=== PATIENT | male | born 1980 | race Caucasian/White ===

== ENCOUNTER 2016-06-15 12:30 | Emergency (ER) | payer OTHER ==
[2016-06-15 12:40] VITALS: TEMP 98.1
[2016-06-15 13:09] VITALS: BP 153/91; PULSE 68; RESP 16
--- NOTE | 2016-06-15 13:22 | ED ---
General Adult HPI - General Chief complaint: ENT Stated complaint: Throat Pain Time Seen by Provider: 06/15/16 12:44 Source: patient Mode of arrival: ambulatory Limitations: no limitations - Related Data Home Medications Medication Instructions Recorded Confirmed Hydrocodone/Acetaminophen [[place] 1 tab PO Q6HR PRN 12/19/15 12/24/15 5-325] Previous Rx's Medication Instructions Recorded Diazepam [Valium] 2 mg PO DIRECTED #6 tab 12/24/15 cefTRIAXone [Rocephin] 2,000 mg IVPB DAILY #7 vial 12/26/15 Allergies Allergy/AdvReac Type Severity Reaction Status Date / Time NSAIDS (Non-Steroidal Allergy Anaphylaxis Verified 06/15/16 12:40 Anti-Inflamma Review of Systems ROS Statement: Those systems with pertinent positive or pertinent negative responses have been documented in the HPI. ROS Other: All systems not noted in ROS Statement are negative. Past Medical History Past Medical History: No Reported History Additional Past Medical History / Comment(s): Pt admitted 12/19/15 with L foot abscess from infected hematoma/L foot cellulitis. He had a recent L foot injury (trailer dropped on foot). History of Any Multi-Drug Resistant Organisms: MRSA Date of last positivie culture/infection: 2013 MDRO Source:: Lip, R. Leg Past Surgical History: No Surgical Hx Reported Additional Past Surgical History / Comment(s): 12/21/15 I & D L foot. Past Anesthesia/Blood Transfusion Reactions: No Reported Reaction Past Psychological History: Anxiety Additional Psychological History / Comment(s): It appears that he is and does have a child. He however lives independently and appears to have a roommate. He does drink alcohol daily-last drank 12/17/15. He does smoke marijuana frequently-last smoked 12/24/15. Works in construction, heavy labor. No experience. No international travel. No animal exposures Smoking Status: Former smoker Past Alcohol Use History: Daily Additional Past Alcohol Use History / Comment(s): Pt states he used to drink 12 beers a day up until 12/17/15. Past Drug Use History: Marijuana Additional Drug Use History / Comment(s): Pt states he has a medical marijuana card. He states he smokes 1 joint a day and last smoked after discharge yesterday from hospital. - Past Family History Father Family Medical History: No Reported History Mother Family Medical History: No Reported History General Exam Limitations: no limitations Course Vital Signs 06/15/16 06/15/16 12:38 13:08 Temperature 98.1 F Pulse Rate 79 68 Respiratory 18 16 Rate Blood Pressure 176/107 153/91 O2 Sat by Pulse 98 100 Oximetry Medical Decision Making - Medical Decision Making Strep test negative here the emergency room. Results were discussed with the patient. He does admit that his had similar symptoms off and on over the last 3 years. Was discussed about following up with ENT specialist. Patient will be given information for follow-up. Advised return for any other concerns. States understanding and is in agreement with this plan. - Lab Data Lab Results 06/15/16 Range/Units 12:51 Group A Strep Rapid Negative (Negative) Disposition Clinical Impression: Pharyngitis Disposition: HOME SELF-CARE Condition: Good Instructions: Pharyngitis (ED) Additional Instructions: Please follow-up with ENT specialist as discussed. Return to emergency room if any symptoms increase or worsen or for any other concerns. Referrals: Galen Brenner MD [Primary Care Provider] - 1-2 days Nic Box DO [Doctor of Osteopathic Medicine] - 1-2 days Time of Disposition: 13:32
== END 2016-06-15 13:42 | disposition home or self-care (01) ==
LOC: EC 12:30
DX: J02.9 Acute pharyngitis, unspecified (principal); Z87.891 Personal history of nicotine dependence; Z88.6 Allergy status to analgesic agent
CPT/HCPCS: 87081; 87430; 99283

== ENCOUNTER 2016-10-04 15:20 | Emergency (ER) | payer OTHER ==
--- NOTE | 2016-10-04 15:48 | ED ---
General Adult HPI - General Chief complaint: Upper Respiratory Infection Stated complaint: Chest congestion Time Seen by Provider: 10/04/16 15:33 Source: patient Mode of arrival: ambulatory Limitations: no limitations - History of Present Illness Initial comments: Is a 35-year-old male who presents emergency department for a cough and blood- tinged sputum. He states that he's been having upper respiratory symptoms including runny nose and sore throat for the last week. He states over the last 24 hours he developed a cough and his girlfriend stated that he was wheezing overnight and he denies any fevers or chills at home. He states that she's been using [id number] medications and remedies. He seems a is still worsening. He was concerned that he may be developing pneumonia so decided come emergency department. The patient does smoke medical marijuana however not tobacco. Denies any other complaints currently. - Related Data Previous Rx's Medication Instructions Recorded Amoxicillin/Potassium Clav 1 tab PO Q12HR #14 tab 10/04/16 [Augmentin 875-125 Tablet] Allergies Allergy/AdvReac Type Severity Reaction Status Date / Time NSAIDS (Non-Steroidal Allergy Anaphylaxis Verified 10/04/16 15:30 Anti-Inflamma Review of Systems ROS Statement: Those systems with pertinent positive or pertinent negative responses have been documented in the HPI. ROS Other: All systems not noted in ROS Statement are negative. Past Medical History Past Medical History: No Reported History Additional Past Medical History / Comment(s): Pt admitted 12/19/15 with L foot abscess from infected hematoma/L foot cellulitis. He had a recent L foot injury (trailer dropped on foot). History of Any Multi-Drug Resistant Organisms: MRSA Date of last positivie culture/infection: 2013 MDRO Source:: Lip, R. Leg Past Surgical History: No Surgical Hx Reported Additional Past Surgical History / Comment(s): 12/21/15 I & D L foot. Past Anesthesia/Blood Transfusion Reactions: No Reported Reaction Past Psychological History: Anxiety Smoking Status: Former smoker Past Alcohol Use History: Daily Past Drug Use History: Marijuana - Past Family History Father Family Medical History: No Reported History Mother Family Medical History: No Reported History General Exam - General Exam Comments Initial Comments: Constitutional: Awake alert Appears comfortable Head: Normocephalic atraumatic Eyes: no conjunctival injection No scleral icterus EOMI ENT: TMs clear bilaterally, oropharynx is mildly erythematous with a edematous uvula Neck: No JVD Supple Heart: Regular rate rhythm normal S1-S2 no murmurs Lungs: Clear to auscultation bilaterally No wheezing No rales Abdomen: Soft nondistended nontender Extremities: Non edematous DP pulses intact Radial pulses intact Neuro: A&Ox3 No focal neurologic deficits Psych: Appropriate mood and affect Limitations: no limitations Course Vital Signs 10/04/16 10/04/16 15:28 16:10 Temperature 97.0 F L Pulse Rate 75 Respiratory 16 17 Rate Blood Pressure 138/88 O2 Sat by Pulse 97 Oximetry Medical Decision Making - Medical Decision Making Is a 35-year-old male presents emergency department for cough and blood-tinged sputum. She has what appears to be pharyngitis and upper respiratory infection. Since he's been having symptoms for over a week and like to treat him with antibiotics. Going to start him on Augmentin. He developed his primary doctor. Feel free to return emergency Department he has worsening or changing symptoms. All questions were answered. Disposition Clinical Impression: Pharyngitis, Upper respiratory infection Disposition: HOME SELF-CARE Condition: Stable Instructions: Upper Respiratory Infection (ED), Pharyngitis (ED) Prescriptions: Amoxicillin/Potassium Clav [Augmentin 875-125 Tablet] 1 tab PO Q12HR #14 tab Referrals: Galen Brenner MD [Primary Care Provider] - 1-2 days
--- NOTE | 2016-10-04 16:30 | XR ---
EXAMINATION TYPE: XR chest 2V DATE OF EXAM: 10/04/2016 COMPARISON: NONE HISTORY: Cough and chest inflammation TECHNIQUE: Frontal and lateral views of the chest are obtained. FINDINGS: There is no focal air space opacity, pleural effusion, or pneumothorax seen. The cardiac silhouette size is within normal limits. The osseous structures are intact. IMPRESSION: No acute cardiopulmonary process.
[2016-10-04 16:44] VITALS: BP 123/78; PULSE 70; RESP 18; TEMP 98
== END 2016-10-04 16:44 | disposition home or self-care (01) ==
LOC: EC 15:20
DX: J02.9 Acute pharyngitis, unspecified (principal); Z88.6 Allergy status to analgesic agent; Z87.891 Personal history of nicotine dependence
CPT/HCPCS: 71020; 99283

== ENCOUNTER 2018-04-08 15:48 | Emergency (ER) | payer OTHER ==
[2018-04-08 15:57] VITALS: RESP 18
[2018-04-08] MEDS ORDERED: PIPERACILLIN-TAZOBACTAM 3.375 GM in SODIUM CHLORIDE 0.9% 100 ML IVPB STA (17:03)
[2018-04-08] MEDS ORDERED: ceFAZolin 2,000 MG in DEXTROSE/WATER 1 50ML.BAG IVPB STA (17:18)
[2018-04-08] MEDS ORDERED: ceFAZolin IN SWFI 2 GM/20 ML SYRINGE IVP STA (17:23)
--- NOTE | 2018-04-08 17:36 | XR ---
EXAMINATION TYPE: XR hand complete RT DATE OF EXAM: 04/08/2018 COMPARISON: None HISTORY: Redness and swelling TECHNIQUE: Three-view right hand FINDINGS: No acute fractures are evident. Joint spaces are preserved. No suspicious cortical erosions are evident. There is diffuse soft tissue swelling most notably along the dorsum of the hand. No radiopaque foreig n bodies are evident. IMPRESSION: 1. Diffuse soft tissue swelling greater along the dorsum of the hand. 2. No acute osseous abnormality. 3. Follow-up can be performed 7-10 days from acute trauma for continued pain.
--- NOTE | 2018-04-08 17:46 | ED ---
Skin/Abscess/FB HPI - General Chief complaint: Skin/Abscess/Foreign Body Stated complaint: hand injury Time Seen by Provider: 04/08/18 16:02 Source: patient, RN notes reviewed, old records reviewed Mode of arrival: ambulatory Limitations: no limitations - History of Present Illness Initial comments: This Patient is a 37-year-old male who presents very department today with right hand pain swelling possibly of infection. Patient reports that he cut his finger on a nail at work a few weeks ago. Patient reports that he had abrasion over the right third distal metacarpal. Patient states that he has noticed redness and swelling of the hand today. He denies fevers or chills. He reports he has had a history of cellulitis. He also reports that his tetanus shot is up-to-date and he did receive a 3 years ago with his last laceration. Patient states that he has no chest pain nausea or vomiting. He does report normal sensation on the fingers distally. - Related Data Previous Rx's Medication Instructions Recorded Cephalexin [Keflex] 500 mg PO Q6HR 10 Days cap 04/08/18 Sulfamethox-Tmp 800-160Mg [Bactrim 2 tab PO Q12HR #40 tab 04/08/18 DS 800-160 mg] Allergies Allergy/AdvReac Type Severity Reaction Status Date / Time NSAIDS (Non-Steroidal Allergy Anaphylaxis Verified 04/08/18 16:22 Anti-Inflamma Review of Systems ROS Statement: Those systems with pertinent positive or pertinent negative responses have been documented in the HPI. ROS Other: All systems not noted in ROS Statement are negative. Past Medical History Past Medical History: No Reported History Additional Past Medical History / Comment(s): Pt admitted 12/19/15 with L foot abscess from infected hematoma/L foot cellulitis. He had a recent L foot injury (trailer dropped on foot). History of Any Multi-Drug Resistant Organisms: MRSA Date of last positivie culture/infection: 2013 MDRO Source:: Lip, R. Leg Past Surgical History: No Surgical Hx Reported Additional Past Surgical History / Comment(s): 12/21/15 I & D L foot. Past Anesthesia/Blood Transfusion Reactions: No Reported Reaction Past Psychological History: Anxiety Smoking Status: Former smoker Past Alcohol Use History: Daily Past Drug Use History: Marijuana - Past Family History Father Family Medical History: No Reported History Mother Family Medical History: No Reported History General Exam - General Exam Comments Initial Comments: Is a 37-year-old male. Alert and oriented 3. Patient appears in no significant distress. Limitations: no limitations General appearance: alert, in no apparent distress Head exam: Present: atraumatic, normocephalic, normal inspection Eye exam: Present: normal appearance, PERRL, EOMI. Absent: scleral icterus, conjunctival injection, periorbital swelling ENT exam: Present: normal exam, mucous membranes moist Neck exam: Present: normal inspection. Absent: tenderness, meningismus, lymphadenopathy Respiratory exam: Present: normal lung sounds bilaterally. Absent: respiratory distress, wheezes, rales, rhonchi, stridor Cardiovascular Exam: Present: regular rate, normal rhythm, normal heart sounds. Absent: systolic murmur, diastolic murmur, rubs, gallop, clicks Extremities exam: Present: normal inspection, full ROM, normal capillary refill , other (Patient has tenderness and swelling noted over the dorsum of the right hand. A racemic setting over the dorsum of the hand. Full range of motion of the wwriest.). Absent: tenderness, pedal edema, joint swelling, calf tenderness Back exam: Present: normal inspection Neurological exam: Present: alert, oriented X3, CN II-XII intact Psychiatric exam: Present: normal affect, normal mood Course Vital Signs 04/08/18 04/08/18 15:53 18:57 Temperature 98.4 F 98.2 F Pulse Rate 86 88 Respiratory 18 18 Rate Blood Pressure 148/88 132/65 O2 Sat by Pulse 99 99 Oximetry Medical Decision Making - Medical Decision Making Patient is a 37 year male presents returns today with redness and swelling to the dorsum of the right hand. This is occurring 2 weeks after he has a small abrasion noted. At this time Patient states lab work shows mildly elevated white blood cell count. Elevated CRP. He does have full range of motion. No signs of this and advised at this time. I did give the Patient 1 dose of IV Keflex. I discussed with the Patient that I could either admit him for IV antibiotics or try a course of outpatient therapy. Patient states she would like to try oral antibiotics at this time. He is quite adamant that he would like to be discharged home. Discharged with prescription for Keflex and Bactrim. I advised him on strict return parameters and following up with hand surgeon. Patient agrees to treatment plan will comply. Return parameters were discussed. - Lab Data Result diagrams: 04/08/18 16:50 04/08/18 16:50 Lab Results 04/08/18 04/08/18 Range/Units 16:50 16:50 WBC 12.7 H (3.8-10.6) k/uL RBC 4.73 (4.30-5.90) m/uL Hgb 15.0 (13.0-17.5) gm/dL Hct 46.7 (39.0-53.0) % MCV 98.6 (80.0-100.0) fL MCH 31.6 (25.0-35.0) pg MCHC 32.1 (31.0-37.0) g/dL RDW 12.8 (11.5-15.5) % Plt Count 230 (150-450) k/uL Neutrophils % 85 % Lymphocytes % 7 % Monocytes % 5 % Eosinophils % 1 % Basophils % 0 % Neutrophils # 10.8 H (1.3-7.7) k/uL Lymphocytes # 0.9 L (1.0-4.8) k/uL Monocytes # 0.7 (0-1.0) k/uL Eosinophils # 0.1 (0-0.7) k/uL Basophils # 0.0 (0-0.2) k/uL ESR 6 (0-15) mm/hr Sodium 139 (137-145) mmol/L Potassium 4.4 (3.5-5.1) mmol/L Chloride 105 (98-107) mmol/L Carbon Dioxide 25 (22-30) mmol/L Anion Gap 9 mmol/L BUN 13 (9-20) mg/dL Creatinine 0.84 (0.66-1.25) mg/dL Est GFR (CKD-EPI)AfAm >90 (>60 ml/min/1.73 sqM) Est GFR (CKD-EPI)NonAf >90 (>60 ml/min/1.73 sqM) Glucose 94 (74-99) mg/dL Calcium 9.1 (8.4-10.2) mg/dL Total Bilirubin 0.8 (0.2-1.3) mg/dL AST 49 (17-59) U/L ALT 53 (21-72) U/L Alkaline Phosphatase 43 (38-126) U/L C-Reactive Protein 28.6 H (<10.0) mg/L Total Protein 7.7 (6.3-8.2) g/dL Albumin 4.7 (3.5-5.0) g/dL - Radiology Data Radiology results: report reviewed X-ray shows diffuse soft tissue swelling greater along the dorsum of the hand. No acute osseous abnormality. Follow up can be performed in 7-10 days from acute trauma for continued pain. Disposition Clinical Impression: Cellulitis of right hand Disposition: HOME SELF-CARE Condition: Good Instructions (If sedation given, give patient instructions): Cellulitis (ED) Additional Instructions: Patient advised to take antibiotics as prescribed. Keep the hand up and elevated. If the redness swelling and pain worsens within the next 24-48 hours please return for reevaluation and IV antibiotics. Prescriptions: Cephalexin [Keflex] 500 mg PO Q6HR 10 Days cap Sulfamethox-Tmp 800-160Mg [Bactrim DS 800-160 mg] 2 tab PO Q12HR #40 tab Is patient prescribed a controlled substance at d/c from ED?: No Referrals: None,Stated [Primary Care Provider] - 1-2 days Galen Malone DO [Medical Doctor] - 1-2 days Time of Disposition: 18:37
[2018-04-08 17:49] LABS: Basophils % (A) 0 %; Eosinophils # (A) 0.1 k/uL (0-0.7); Eosinophils % (A) 1 %; HCT 46.7 % (39.0-53.0); Lymphocytes # (A) 0.9 k/uL (1.0-4.8); Lymphocytes % (A) 7 %; MCH 31.6 pg (25.0-35.0); MCHC 32.1 g/dL (31.0-37.0); MCV 98.6 fL (80.0-100.0); Mean Platelet Volume 7.1; Monocytes # (A) 0.7 k/uL (0-1.0); Monocytes % (A) 5 %; Neutrophils # (A) 10.8 k/uL (1.3-7.7); Neutrophils % (A) 85 %; Platelet Count 230 k/uL (150-450); RBC 4.73 m/uL (4.30-5.90); RDW 12.8 % (11.5-15.5); WBC 12.7 k/uL (3.8-10.6)
[2018-04-08 18:09] LABS: ALT 53 U/L (21-72); AST 49 U/L (17-59); Albumin 4.7 g/dL (3.5-5.0); Alkaline Phosphatase 43 U/L (38-126); Anion Gap 9 mmol/L; Blood Urea Nitrogen 13 mg/dL (9-20); C Reactive Protein 28.6 mg/L (<10.0); Calcium 9.1 mg/dL (8.4-10.2); Carbon Dioxide 25 mmol/L (22-30); Chloride 105 mmol/L (98-107); Glucose 94 mg/dL (74-99); Potassium 4.4 mmol/L (3.5-5.1); Sodium 139 mmol/L (137-145); Total Bilirubin 0.8 mg/dL (0.2-1.3); Total Protein 7.7 g/dL (6.3-8.2)
[2018-04-08 18:34] LABS: Erythrocyte Sedimentation Rate 6 mm/hr (0-15)
[2018-04-08] MEDS ORDERED: SULFAMETH-TMP DS STARTER PACK 2 TAB BTL PO STA (18:39)
[2018-04-08 19:03] VITALS: BP 132/65; PULSE 88; TEMP 98.2
== END 2018-04-08 19:03 | disposition home or self-care (01) ==
LOC: EC 15:48
DX: L03.113 Cellulitis of right upper limb (principal); Z88.6 Allergy status to analgesic agent; Z87.891 Personal history of nicotine dependence; Y92.69 Other specified industrial and construction area as the place of occurrence of the external cause; Y99.0 Civilian activity done for income or pay
CPT/HCPCS: 36415; 80053; 85652; 85025; 86140; 73130; 99284; 96374; J0690

== ENCOUNTER 2018-04-10 18:37 | Inpatient (IN) | payer OTHER ==
[2018-04-10] MEDS ORDERED: SODIUM CHLORIDE 0.9% 1,000 ML IV STA (20:51)
--- NOTE | 2018-04-10 21:08 | XR ---
EXAMINATION TYPE: XR forearm RT DATE OF EXAM: 04/10/2018 CLINICAL HISTORY: Ciro puncture injury 2 weeks ago with pain and redness and swelling. TECHNIQUE: Two views of the right forearm are obtained. COMPARISON: None. FINDINGS: There is no acute fracture or dislocation seen in the right radius or ulna. The right elb ow and wrist joints appear within normal limits. The overlying soft tissue appears within normal hernandez its without metallic foreign body identified. IMPRESSION: There is no acute fracture or dislocation seen in the right radius or ulna.
--- NOTE | 2018-04-10 21:10 | XR ---
EXAMINATION TYPE: XR hand complete RT DATE OF EXAM: 04/10/2018 CLINICAL HISTORY: Pain swelling and redness after puncture injury 2 weeks ago. TECHNIQUE: Frontal, lateral and oblique images of the right hand are obtained. COMPARISON: Right hand x-ray from 2 days ago. FINDINGS: There is no acute fracture/dislocation evident in the right hand. Moderate narrowing with mild spurring first metacarpophalangeal joint is redemonstrated. There is mild to moderate narrowing and spurring throughout the PIP and DIP joints of the phalanges with mild soft tissue swelling redemo nstrated . No metallic soft tissue foreign body is noted. IMPRESSION: There is no acute fracture or dislocation in the right hand. No significant change from prior.
[2018-04-10] MEDS ORDERED: VANCOMYCIN IV PER PHARMACY 1 EACH MISC MISCELLANE PRN (21:16)
[2018-04-10] MEDS ORDERED: PIPERACILLIN-TAZOBACTAM 3.375 GM in SODIUM CHLORIDE 0.9% 100 ML IVPB STA (21:23)
[2018-04-10] MEDS ORDERED: VANCOMYCIN 2,000 MG in SODIUM CHLORIDE 0.9% 500 ML 500 ML IVPB STA (21:30)
--- NOTE | 2018-04-10 21:34 | ED ---
General Adult HPI - General Source: patient, RN notes reviewed, old records reviewed Mode of arrival: ambulatory Limitations: no limitations <Flaco Tao - Last Filed: 04/11/18 01:09> <Gena Pizarro - Last Filed: 04/11/18 04:33> - General Chief complaint: Extremity Injury, Upper Stated complaint: IHS - hand injury recheck Time Seen by Provider: 04/10/18 21:12 - History of Present Illness Initial comments: 37-year-old male patient presents to ED with failed outpatient treatment of cellulitis of right hand. Patient reportedly suffered a abrasion to his third MCP joint of his right hand approximately 2 weeks ago. Patient was seen 2 days ago in ED and diagnosis cellulitis, placed on left Bactrim and Keflex. Patient has noticed increased redness on the dorsum of his right hand, extending up his right forearm. Patient states that has been approximately 1 inch of increased erythema today. Patient denies any other complaints. Patient denies any fevers or chills, nausea diarrhea, abdominal pain. Systemic: Pt denies fatigue, myalgia, fever/chills. Pt denies weakness, night sweats, weight loss. Neuro: Pt denies headache, visual disturbances, syncope or pre-syncope. HEENT: Pt denies ocular discharge or irritation, otalgia, rhinorrhea, pharyngitis or notable lymphadenopathy. Cardiopulmonary: Pt denies chest pain, SOB, heart palpitations, dyspnea on exertion. Abdominal/GI: Pt denies abdominal pain, n/v/d. : Pt denies dysuria, burning w/ urination, frequency/urgency. Denies new onset urinary or bowel incontinence. MSK: Pt denies myalgia, loss of strength or function in extremities. Neuro: Pt denies new onset weakness, paresthesias. (Flaco Tao) - Related Data Home Medications Medication Instructions Recorded Confirmed Acetaminophen Tab [Tylenol Tab] 975 mg PO ONCE PRN 04/10/18 04/10/18 Previous Rx's Medication Instructions Recorded Cephalexin [Keflex] 500 mg PO Q6HR 10 Days cap 04/08/18 Sulfamethox-Tmp 800-160Mg [Bactrim 2 tab PO Q12HR #40 tab 04/08/18 DS 800-160 mg] Allergies Allergy/AdvReac Type Severity Reaction Status Date / Time NSAIDS (Non-Steroidal Allergy Anaphylaxis Verified 04/10/18 22:44 Anti-Inflamma Review of Systems ROS Other: All systems not noted in ROS Statement are negative. <Flaco Tao - Last Filed: 04/11/18 01:09> ROS Other: All systems not noted in ROS Statement are negative. <Gena Pizarro - Last Filed: 04/11/18 04:33> ROS Statement: Those systems with pertinent positive or pertinent negative responses have been documented in the HPI. Past Medical History Past Medical History: No Reported History Additional Past Medical History / Comment(s): Pt admitted 12/19/15 with L foot abscess from infected hematoma/L foot cellulitis. He had a recent L foot injury (trailer dropped on foot). History of Any Multi-Drug Resistant Organisms: MRSA Date of last positivie culture/infection: 2013 MDRO Source:: Lip, R. Leg Past Surgical History: No Surgical Hx Reported Additional Past Surgical History / Comment(s): 12/21/15 I & D L foot. Past Anesthesia/Blood Transfusion Reactions: No Reported Reaction Past Psychological History: No Psychological Hx Reported Smoking Status: Former smoker Past Alcohol Use History: Daily Past Drug Use History: Marijuana - Past Family History Father Family Medical History: No Reported History Mother Family Medical History: No Reported History <Flaco Tao - Last Filed: 04/11/18 01:09> General Exam Limitations: no limitations <Flaco Tao - Last Filed: 04/11/18 01:09> <Gena Pizarro - Last Filed: 04/11/18 04:33> - General Exam Comments Initial Comments: Constitutional: NAD, AOX3, Pt has pleasant affect. HEENT: NC/AT, trachea midline, neck supple, no lymphadenopathy. Posterior pharynx non erythematous, without exudates. External ears appear normal, without discharge. Mucous membranes moist. Eyes PERRLA, EOM intact. There is no scleral icterus. No pallor noted. Cardiopulmonary: RRR, no murmurs, rubs or gallops, no JVD noted. Lungs CTAB in anterior and posterior sher. No peripheral edema. Abdominal exam: Abdomen soft and non-distended. Abdomen non-tender to palpation in all 4 quadrants. Bowel sounds active in LLQ. No hepatosplenomegaly. No ecchymosis Neuro: CN II-XII grossly intact. No nuchal rigidity. MSK: Mild amount of erythema to the dorsal aspect right hand. Healed abrasion to the third MCP joint noted. Patient has full range of motion. Patient has no erythema or tenderness to flexor sheaths of any digits. Patient has erythema and warmth of dorsal forearm that extends approximately 2 inches of his recent ulna. No drainage, no abscess. Wound margins marked with sharpie. Patient neurovascularly intact. No posterior calf tenderness bilaterally, homans sign negative bilaterally. Posterior tibialis and radial pulse +2 bilaterally. Sensation intact in upper and lower extremities. Full active ROM in upper and lower extremities, 5/5 stregnth. (Flaco Tao) Vital Signs 04/10/18 04/10/18 19:03 22:49 Temperature 99.2 F 98.4 F Pulse Rate 85 64 Respiratory 18 16 Rate Blood Pressure 163/98 131/81 O2 Sat by Pulse 96 97 Oximetry Medical Decision Making - Lab Data Result diagrams: 04/10/18 21:30 04/10/18 21:30 <Flaco Tao - Last Filed: 04/11/18 01:09> - Lab Data Result diagrams: 04/10/18 21:30 04/10/18 21:30 <Gena Pizarro - Last Filed: 04/11/18 04:33> - Medical Decision Making 37-year-old male patient presents to ED with failed outpatient treatment of cellulitis of right hand. Patient reportedly suffered a abrasion to his third MCP joint of his right hand approximately 2 weeks ago. Patient was seen 2 days ago in ED and diagnosis cellulitis, placed on left Bactrim and Keflex. Patient has noticed increased redness on the dorsum of his right hand, extending up his right forearm. Patient states that has been approximately 1 inch of increased erythema today. Pt VSS, afebrile. Physical exam displayed: Mild amount of erythema to the dorsal aspect right hand. Healed abrasion to the third MCP joint noted. Patient has full range of motion. Patient has no erythema or tenderness to flexor sheaths of any digits. Patient has erythema and warmth of dorsal forearm that extends approximately 2 inches of his recent ulna. No drainage, no abscess. Wound margins marked with sharpie. Patient neurovascularly intact. Laboratory investigations revealed non-impressive CBC, CMP. Blood cultures obtained. Patient to be admitted for IV antibiotics and continued evaluation. Case discussed in depth with Dr. Pizarro. (Flaco Tao) I personally saw and examined the patient. I reviewed and agree with the mid- level provider findings including all diagnostic interpretations and treatment plans as written. Upon my evaluation I noted the patient had marking on his distal right wrist which she states were the borders of the cellulitis yesterday despite being compliant with his medications the cellulitis has traveled up his arm by approximately 3-4 cm circumferentially. These borders were marked today. At this time I do feel the patient warrants admission to the hospital for failed outpatient therapy of cellulitis especially given his history of complicated cellulitis requiring IV antibiotics. She care was discussed with Dr. Ortega of the [facility] physician group who accepts admission. (Gena Pizarro) - Lab Data Lab Results 04/10/18 04/10/18 04/10/18 Range/Units 21:30 21:30 21:30 WBC 9.4 (3.8-10.6) k/uL RBC 4.30 (4.30-5.90) m/uL Hgb 13.8 (13.0-17.5) gm/dL Hct 42.4 (39.0-53.0) % MCV 98.6 (80.0-100.0) fL MCH 32.1 (25.0-35.0) pg MCHC 32.5 (31.0-37.0) g/dL RDW 12.6 (11.5-15.5) % Plt Count 210 (150-450) k/uL Neutrophils % 72 % Lymphocytes % 17 % Monocytes % 6 % Eosinophils % 3 % Basophils % 1 % Neutrophils # 6.8 (1.3-7.7) k/uL Lymphocytes # 1.6 (1.0-4.8) k/uL Monocytes # 0.6 (0-1.0) k/uL Eosinophils # 0.2 (0-0.7) k/uL Basophils # 0.1 (0-0.2) k/uL Sodium 139 (137-145) mmol/L Potassium 4.2 (3.5-5.1) mmol/L Chloride 109 H (98-107) mmol/L Carbon Dioxide 21 L (22-30) mmol/L Anion Gap 9 mmol/L BUN 22 H (9-20) mg/dL Creatinine 1.02 (0.66-1.25) mg/dL Est GFR (CKD-EPI)AfAm >90 (>60 ml/min/1.73 sqM) Est GFR (CKD-EPI)NonAf >90 (>60 ml/min/1.73 sqM) Glucose 96 (74-99) mg/dL Plasma Lactic Acid Gamaliel 0.7 (0.7-2.0) mmol/L Calcium 9.1 (8.4-10.2) mg/dL Total Bilirubin 0.4 (0.2-1.3) mg/dL AST 28 (17-59) U/L ALT 41 (21-72) U/L Alkaline Phosphatase 46 (38-126) U/L Total Protein 6.8 (6.3-8.2) g/dL Albumin 3.9 (3.5-5.0) g/dL Disposition Is patient prescribed a controlled substance at d/c from ED?: No <Flaco Tao - Last Filed: 04/11/18 01:09> <Gena Pizarro - Last Filed: 04/11/18 04:33> Clinical Impression: Cellulitis Disposition: ADMITTED IP TO THIS HOSP Condition: Serious
[2018-04-10 21:44] LABS: Basophils # (A) 0.1 k/uL (0-0.2); Basophils % (A) 1 %; Eosinophils # (A) 0.2 k/uL (0-0.7); Eosinophils % (A) 3 %; HCT 42.4 % (39.0-53.0); HGB 13.8 gm/dL (13.0-17.5); Lymphocytes # (A) 1.6 k/uL (1.0-4.8); Lymphocytes % (A) 17 %; MCH 32.1 pg (25.0-35.0); MCHC 32.5 g/dL (31.0-37.0); MCV 98.6 fL (80.0-100.0); Mean Platelet Volume 7.5; Monocytes # (A) 0.6 k/uL (0-1.0); Monocytes % (A) 6 %; Neutrophils # (A) 6.8 k/uL (1.3-7.7); Neutrophils % (A) 72 %; Platelet Count 210 k/uL (150-450); RDW 12.6 % (11.5-15.5); WBC 9.4 k/uL (3.8-10.6)
[2018-04-10 21:54] LABS: ALT 41 U/L (21-72); AST 28 U/L (17-59); Albumin 3.9 g/dL (3.5-5.0); Alkaline Phosphatase 46 U/L (38-126); Anion Gap 9 mmol/L; Blood Urea Nitrogen 22 mg/dL (9-20); Calcium 9.1 mg/dL (8.4-10.2); Carbon Dioxide 21 mmol/L (22-30); Chloride 109 mmol/L (98-107); Glucose 96 mg/dL (74-99); Potassium 4.2 mmol/L (3.5-5.1); Sodium 139 mmol/L (137-145); Total Bilirubin 0.4 mg/dL (0.2-1.3); Total Protein 6.8 g/dL (6.3-8.2)
[2018-04-10] MEDS ORDERED: NALOXONE 0.4 MG/ML 1 ML VIAL IV PRN (22:17)
[2018-04-10] MEDS ORDERED: ACETAMINOPHEN TAB 325 MG TAB PO PRN (22:17)
[2018-04-10] MEDS ORDERED: HYDROcodone/APAP 7.5-325MG 1 EACH TAB PO ONE (22:40)
[2018-04-10] MEDS: SODIUM CHLORIDE 0.9% 1,000 ML IV SCH (22:46)
[2018-04-10 23:26] VITALS: BMI 28.8
--- NOTE | 2018-04-10 23:50 | P.HPIM ---
History of Present Illness H&P Date: 04/10/18 The patient is a 37-year-old male with no significant PMH presented to the ED for right hand cellulitis with failure of outpatient therapy. 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 The patient had presented to the ED 2 days ago and was diagnosed with right hand cellulitis and was discharged home with Keflex and Bactrim. The patient had marked the area of redness yesterday, and noted that today the redness had spread about 2 inches further along with increased warmth and swelling. The patient otherwise notes that the pain has improved and he denied fever, chills, nausea, vomiting, abdominal pain, or diarrhea. The patient notes that he feels some pressure in the right hand but is able to make a full fist and denied any numbness or tingling in the hand. The patient underwent a comprehensive workup in the emergency room. He was afebrile at 98.4,WBC count 9.4, hemoglobin 13.8, sodium 139, BUN 22, creatinine 1.02, with lactic acid 0.7. Right hand x-ray demonstrated soft tissue swelling with no fractures noted. Right forearm x-ray revealed no abnormal findings. He is being admitted to the medicine service for cellulitis with failure of outpatient therapy. Review of Systems Pertinent positives and negatives as discussed in HPI, a complete review of systems was performed and all other systems are negative. Past Medical History Past Medical History: No Reported History Additional Past Medical History / Comment(s): Pt admitted 12/19/15 with L foot abscess from infected hematoma/L foot cellulitis. He had a recent L foot injury (trailer dropped on foot). History of Any Multi-Drug Resistant Organisms: MRSA Date of last positivie culture/infection: 2013 MDRO Source:: Lip, R. Leg Past Surgical History: No Surgical Hx Reported Additional Past Surgical History / Comment(s): 12/21/15 I & D L foot. Past Anesthesia/Blood Transfusion Reactions: No Reported Reaction Smoking Status: Former smoker - Past Family History Father Family Medical History: No Reported History Mother Family Medical History: No Reported History Medications and Allergies Home Medications Medication Instructions Recorded Confirmed Type Cephalexin [Keflex] 500 mg PO Q6HR 10 Days cap 04/08/18 04/10/18 Rx Sulfamethox-Tmp 800-160Mg [Bactrim 2 tab PO Q12HR #40 tab 04/08/18 04/10/18 Rx DS 800-160 mg] Acetaminophen Tab [Tylenol Tab] 975 mg PO ONCE PRN 04/10/18 04/10/18 History Allergies Allergy/AdvReac Type Severity Reaction Status Date / Time NSAIDS (Non-Steroidal Allergy Anaphylaxis Verified 04/10/18 22:44 Anti-Inflamma Physical Exam Vitals: Vital Signs Temp Pulse Resp BP Pulse Ox 04/10/18 22:49 98.4 F 64 16 131/81 97 04/10/18 19:03 99.2 F 85 18 163/98 96 Intake and Output 04/10/18 04/10/18 04/11/18 14:59 22:59 06:59 Other: Weight 97.522 kg General: non toxic, no distress, appears at stated age, normal weight Head: atraumatic, normocephalic, symmetric Eyes: EOMI, no lid lag, anicteric sclera, pupils equal round reactive to light ENT: Nose and ears atraumatic, no thrush, no pharyngeal erythema Neck: No thyromegaly, no cervical lymphadenopathy, trachea midline, supple Mouth: no lip lesion, mucus membranes moist Cardiovascular: S1S2 reg, no murmur, positive posterior tibial pulse bilateral, no edema, capillary refill less than 2 seconds Lungs: CTA bilateral, no rhonchi, no rales , no accessory muscle use Abdominal: soft, nontender to palpation, no guarding, no appreciable organomegaly, normal bowel sounds Ext: Right hand dorsum third MCP 1 cm x 1 cm dry ulcer with scab, surrounding erythema, warmth, tenderness, no fluctuance, radial pulses intact bilaterally, range of motion right hand normal, muscle strength 5 out of 5 in all 4 extremities grossly, no contractures Neuro: CN II-XI grossly intact, light touch intact all 4 extremities, finger to nose within normal limits, Psych: Alert, oriented, appropriate affect Results CBC & Chem 7: 04/10/18 21:30 04/10/18 21:30 Labs: Abnormal Lab Results - Last 24 Hours (Table) 04/10/18 Range/Units 21:30 Chloride 109 H (98-107) mmol/L Carbon Dioxide 21 L (22-30) mmol/L BUN 22 H (9-20) mg/dL Assessment and Plan Plan: Right hand cellulitis, failed outpatient therapy -Continue with vancomycin, and Zosyn -Infectious disease consult -IV fluids -Pain control with [place] DVT//GI prophylaxis -Heparin -No indication for GI prophylaxis The patient is admitted with an anticipated greater than than 2 midnight stay for evaluation of cellulitis. CODE STATUS: Full code Discussed with: Patient, mother Anticipated discharge date: 04/13/[address]: Home A total of 45 minutes was spent on the care of this complex patient more than 50 % of the time was spent in counseling and care coordination.
[2018-04-11] MEDS: HEPARIN SODIUM,PORCINE 5,000 UNIT/ML 1 ML VIAL SQ SCH ×3 (00:03→15:39)
[2018-04-11] MEDS: Acetaminophen-Codeine 300-30mg TAB PO PRN ×3 (03:08→23:00)
[2018-04-11] MEDS: PIPERACILLIN-TAZOBACTAM 3.375 GM in SODIUM CHLORIDE 0.9% 100 ML IVPB SCH ×2 (05:44→13:59)
[2018-04-11 07:51] VITALS: RESP 16
[2018-04-11 08:18] LABS: HCT 44.4 % (39.0-53.0); MCH 31.8 pg (25.0-35.0); MCHC 31.7 g/dL (31.0-37.0); MCV 100.5 fL (80.0-100.0); Mean Platelet Volume 6.9; Platelet Count 212 k/uL (150-450); RBC 4.42 m/uL (4.30-5.90); RDW 12.4 % (11.5-15.5); WBC 6.2 k/uL (3.8-10.6)
[2018-04-11 08:39] LABS: Anion Gap 6 mmol/L; Blood Urea Nitrogen 14 mg/dL (9-20); Calcium 8.8 mg/dL (8.4-10.2); Carbon Dioxide 22 mmol/L (22-30); Chloride 111 mmol/L (98-107); Glucose 90 mg/dL (74-99); Potassium 4.4 mmol/L (3.5-5.1); Sodium 139 mmol/L (137-145)
[2018-04-11] MEDS: VANCOMYCIN 1,500 MG in SODIUM CHLORIDE 0.9% 250 ML IVPB SCH ×2 (10:58→18:14)
--- NOTE | 2018-04-11 14:08 | P.PN ---
Subjective Progress Note Date: 04/11/18 Principal diagnosis: Patient seen and examined. No acute events overnight. Patient reports great improvement in his right hand swelling and redness. He denies any fever or chills. No nausea or vomiting. Right hand cellulitis Objective - Vital Signs Vital signs: Vital Signs Temp 97.3 F L 04/11/18 07:00 Pulse 63 04/11/18 07:00 Resp 16 04/11/18 07:00 BP 112/63 04/11/18 07:00 Pulse Ox 98 04/11/18 07:00 Intake & Output 04/10/18 04/11/18 04/11/18 18:59 06:59 18:59 Intake Total 100 Balance 100 Weight 97.522 kg Intake: Oral 100 - Exam General: [non toxic], [no distress], [appears at stated age] Derm: [warm], [dry] Head: [atraumatic], [normocephalic], [symmetric] Eyes: [EOMI], [no lid lag], [anicteric sclera] Mouth: [no lip lesion], [mucus membranes moist] Cardiovascular: [S1S2 reg], [no murmur], [positive posterior tibial pulse bilateral], Lungs: [CTA bilateral], [no rhonchi, no rales] , [no accessory muscle use] Abdominal: [soft], [ nontender to palpation], [no guarding], [no appreciable organomegaly] Ext: [no gross muscle atrophy], [no edema], [no contractures], [right hand full range of motion, nontender to palpation, slightly swollen within eschar dry on the ventral surface, 2+ radial pulses] Neuro: [no focal neuro deficits] Psych: [Alert], [oriented], [appropriate affect] - Labs CBC & Chem 7: 04/11/18 07:59 04/11/18 07:59 Labs: Abnormal Lab Results - Last 24 Hours (Table) 04/10/18 04/11/18 04/11/18 Range/Units 21:30 07:59 07:59 MCV 100.5 H (80.0-100.0) fL Chloride 109 H 111 H (98-107) mmol/L Carbon Dioxide 21 L (22-30) mmol/L BUN 22 H (9-20) mg/dL Assessment and Plan Assessment: Assessment and Plan 1. Right hand cellulitis 1. X-ray shows no acute fracture or dislocation. Patient is afebrile with no leukocytosis. Continue vancomycin and Zosyn IV. Pain management with Tylenol, Tylenol 3. Infectious disease consulted. Will follow blood cultures.
[2018-04-12] MEDS: PIPERACILLIN-TAZOBACTAM 3.375 GM in SODIUM CHLORIDE 0.9% 100 ML IVPB SCH ×4 (00:33→16:56)
[2018-04-12] MEDS: SODIUM CHLORIDE 0.9% 1,000 ML IV SCH (00:33)
[2018-04-12] MEDS: HEPARIN SODIUM,PORCINE 5,000 UNIT/ML 1 ML VIAL SQ SCH ×3 (00:33→16:56)
[2018-04-12 08:17] LABS: Anion Gap 9 mmol/L; Blood Urea Nitrogen 12 mg/dL (9-20); Calcium 9.7 mg/dL (8.4-10.2); Carbon Dioxide 23 mmol/L (22-30); Chloride 109 mmol/L (98-107); Glucose 94 mg/dL (74-99); Potassium 4.6 mmol/L (3.5-5.1); Sodium 141 mmol/L (137-145)
--- NOTE | 2018-04-12 08:48 | P.PN ---
Subjective Progress Note Date: 04/12/18 Principal diagnosis: Right and cellulitis Patient seen and examined. No acute events overnight. Patient reports improvement in his right hand swelling and redness. He denies any pain at this time. No fever or chills. Objective - Vital Signs Vital signs: Vital Signs Temp 97.7 F 04/12/18 07:30 Pulse 75 04/12/18 07:30 Resp 16 04/12/18 07:30 BP 114/77 04/12/18 07:30 Pulse Ox 97 04/12/18 07:30 Intake & Output 04/11/18 04/12/18 04/12/18 18:59 06:59 18:59 Intake Total 100 Output Total 1000 700 Balance -1000 -600 Intake: Oral 100 Output: Urine 1000 700 Other: Voiding Method Toilet Urinal # Voids 1 - Exam General: [non toxic], [no distress], [appears at stated age] Derm: [warm], [dry] Head: [atraumatic], [normocephalic], [symmetric] Eyes: [EOMI], [no lid lag], [anicteric sclera] Mouth: [no lip lesion], [mucus membranes moist] Cardiovascular: [S1S2 reg], [no murmur], [positive posterior tibial pulse bilateral], Lungs: [CTA bilateral], [no rhonchi, no rales] , [no accessory muscle use] Abdominal: [soft], [ nontender to palpation], [no guarding], [no appreciable organomegaly] Ext: [no gross muscle atrophy], [no edema], [no contractures], [right hand full range of motion, nontender to palpation, slightly swollen within eschar dry on the ventral surface, 2+ radial pulses] Neuro: [no focal neuro deficits] Psych: [Alert], [oriented], [appropriate affect] - Labs CBC & Chem 7: 04/11/18 07:59 04/12/18 07:33 Labs: Abnormal Lab Results - Last 24 Hours (Table) 04/12/18 Range/Units 07:33 Chloride 109 H (98-107) mmol/L Microbiology - Last 24 Hours (Table) 04/10/18 21:30 Blood Culture - Preliminary Blood No Growth after 24 hours Assessment and Plan Assessment: Assessment and Plan 1. Right hand cellulitis 1. X-ray shows no acute fracture or dislocation. Patient is afebrile with no leukocytosis. Seen by infectious disease, vancomycin discontinued. Continue Zosyn IV. Pain management with Tylenol, Tylenol 3. Blood cultures negative after 24 hours. Will follow infectious disease consult.
--- NOTE | 2018-04-12 08:58 | CONS ---
CONSULTATION DATE OF SERVICE: 04/11/2018. REASON FOR CONSULTATION: Right hand cellulitis. HISTORY OF PRESENT ILLNESS: The patient is a 37-year-old, male who apparently did injury his right hand while at work apparently with a nail as the patient seemed to be working in [employer] project. The patient said that the area at the third finger base becoming more swollen and red, but he never opened up or drained with subsequently redness spreading to the dorsum of his right hand. With these symptoms, the patient was evaluated at [facility] ER on 04/08/2018. The patient did have x-rays of the hand which was soft tissue swelling. The patient was started on Keflex and Bactrim which the patient took for 2 days. However, the swelling and redness continued to get worse and involved his forearm. The patient has been complaining of dull aching pain, intensity 5 to 6 over 10, and no radiation. With these symptoms, the patient presented back to the ER. The patient was evaluated by the ER physician. He did have repeat x-rays of the hand and forearm that was negative for any bony fragment or any metallic fragment. The patient was afebrile. His white count was normal. The patient was started on vancomycin and Zosyn and admitted tot hospital. Infectious Disease was consulted for further recommendation regarding antibiotic therapy. The patient did mention that after starting this IV antibiotic, the swelling and redness has much improved. He still has some swelling at the base of his third finger, but has not opened up or any drainage. REVIEW OF SYSTEMS: Positive points have been mentioned in HPI. The rest of review of systems has been negative. PAST MEDICAL HISTORY: Left foot abscess from infected hematoma with culture positive for MRSA. PAST SURGICAL HISTORY: Drainage of the abscess, left foot. SOCIAL HISTORY: Patient has remote history of smoking. No drinking or drug use. FAMILY HISTORY: No pertinent findings noticed. ALLERGIES: Allergies to NONSTEROIDAL INFLAMMATORY MEDICATION. MEDICATIONS: Medications currently include the patient is on vancomycin pharmacy to dose. He is on Zosyn, Narcan, heparin, and Tylenol. PHYSICAL EXAMINATION: On examination, blood pressure 134/78 with a pulse of 75, temperature 98.8. He is 96% on room air. General description is a elderly male up in the chair in no distress. HEENT examination shows no pallor or scleral icterus. Oral mucosa membrane is dry. No pharyngeal erythema or thrush. NECK: Trachea central. No thyromegaly. LUNGS: Unlabored breathing, clear to auscultation anteriorly. No wheeze or crackle. HEART: S1, S2. Regular rate and rhythm. ABDOMEN: Soft, no tenderness. No guarding or rigidity. EXTREMITIES: No edema of feet. Examination of the right hand in the dorsum and the base of the third finger did have area swelling with scab on top of it, but no . The redness ita on the right hand dorsum has receded. NEUROLOGICAL: The patient is awake, alert, oriented x3. Mood and affect normal. LABS: Hemoglobin is 14 with white count 6.2. BUN of 14, creatinine 0.98. 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 PLAN: 1. We will discontinue the vancomycin and keep the patient on Zosyn 3.375 q.8 hours. 2. We will re-evaluate the patient tomorrow. If the area at the base of the third finger opened up and drained, culture should be obtained, that should guide his discharge antibiotic therapy. Thank your for this consultation. Will follow this patient along with you. MMODL / IJN: [id number] /
--- NOTE | 2018-04-12 17:04 | PN ---
PROGRESS NOTE DATE OF SERVICE: 04/12/2018 REASON FOR FOLLOWUP: Right hand cellulitis. INTERVAL HISTORY: The patient is afebrile. He has been breathing comfortably. Overall swelling and redness to the right hand area has decreased. Denies having any pain. There is currently no open wound. Denies having chest pain, shortness of breath or cough. No abdominal pain or diarrhea. PHYSICAL EXAMINATION: Blood pressure 126/76 with a pulse of 77, temperature 98.3. He is 94% on room air. General description is a middle-aged male up in the chair in no distress. RESPIRATORY SYSTEM: Unlabored breathing. Clear to auscultation anteriorly. HEART: S1, S2. Regular rate and rhythm. ABDOMEN: Soft. No tenderness. Right hand swelling and redness has decreased. Currently no fluctuation, induration or any drainage. LABS: BUN of 12, creatinine 0.99. Blood cultures have been negative. DIAGNOSTIC IMPRESSION AND PLAN: Patient with right hand cellulitis with some inflammation at the right third metacarpophalangeal area, but there is no fluctuation or induration noted. The patient is responding to the Zosyn. He did not respond to the outpatient Keflex and Bactrim. Question of possible pseudomonas infection, and with a question of nail injury, keep the patient on Zosyn. If patient continues to improve, he will finish therapy with oral Cipro. Will re-evaluate the patient tomorrow. Continue supportive care. MMODL / IJN: [id number] /
[2018-04-13] MEDS: PIPERACILLIN-TAZOBACTAM 3.375 GM in SODIUM CHLORIDE 0.9% 100 ML IVPB SCH ×2 (00:55→07:55)
[2018-04-13] MEDS: SODIUM CHLORIDE 0.9% 1,000 ML IV SCH (00:56)
[2018-04-13] MEDS: HEPARIN SODIUM,PORCINE 5,000 UNIT/ML 1 ML VIAL SQ SCH ×2 (02:11→08:24)
[2018-04-13 09:51] LABS: Anion Gap 11 mmol/L; Blood Urea Nitrogen 15 mg/dL (9-20); Carbon Dioxide 23 mmol/L (22-30); Chloride 106 mmol/L (98-107); Glucose 103 mg/dL (74-99); Potassium 4.6 mmol/L (3.5-5.1); Sodium 140 mmol/L (137-145)
[2018-04-13 14:35] VITALS: BP 136/89; PULSE 91; TEMP 97.6
--- NOTE | 2018-04-13 14:46 | P.DS ---
Providers Date of admission: 04/10/18 21:58 Expected date of discharge: 04/13/18 Attending physician: Gwendolyn Dubois MD Consults: 04/10/18 23:49 Consult Physician Urgent Consulting Provider: Heladio Bledsoe Consult Reason/Comments: Cellulitis Do you want consulting provider notified?: Yes Primary care physician: Stated None Hospital Course: 37-year-old male with no significant PMH presented to the ED for right hand cellulitis with failure of outpatient therapy. 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 The patient had presented to the ED 2 days ago and was diagnosed with right hand cellulitis and was discharged home with Keflex and Bactrim. The patient had marked the area of redness yesterday, and noted that today the redness had spread about 2 inches further along with increased warmth and swelling. The patient otherwise notes that the pain has improved and he denied fever, chills, nausea, vomiting, abdominal pain, or diarrhea. The patient notes that he feels some pressure in the right hand but is able to make a full fist and denied any numbness or tingling in the hand. The patient underwent a comprehensive workup in the emergency room. He was afebrile at 98.4,WBC count 9.4, hemoglobin 13.8, sodium 139, BUN 22, creatinine 1.02, with lactic acid 0.7. Right hand x-ray demonstrated soft tissue swelling with no fractures noted. Right forearm x-ray revealed no abnormal findings. He is being admitted to the medicine service for cellulitis with failure of outpatient therapy. Patient was initially started on vancomycin IV and piperacillin with tazobactam IV. Infectious disease was consulted and recommended discontinuing vancomycin and continuing the piperacillin with tazobactam IV.his blood cultures were prelim negative after 48 hours. There is no wound cultures. Patient was seen and examined prior to discharge. No acute events overnight. Patient reports great improvement in his right hand swelling. He reports minimal pain. Patient is looking for to going home. General: [non toxic], [no distress], [appears at stated age] Derm: [warm], [dry] Head: [atraumatic], [normocephalic], [symmetric] Eyes: [EOMI], [no lid lag], [anicteric sclera] Mouth: [no lip lesion], [mucus membranes moist] Cardiovascular: [S1S2 reg], [no murmur], [positive posterior tibial pulse bilateral], Lungs: [CTA bilateral], [no rhonchi, no rales] , [no accessory muscle use] Abdominal: [soft], [ nontender to palpation], [no guarding], [no appreciable organomegaly] Ext: [no gross muscle atrophy], [no edema], [no contractures], [right hand full range of motion, nontender to palpation, slightly swollen within eschar dry on the ventral surface, 2+ radial pulses, improved from yesterday] Neuro: [no focal neuro deficits] Psych: [Alert], [oriented], [appropriate affect] Assessment and Plan 1. Right hand cellulitis 1. X-ray shows no acute fracture or dislocation. Patient is afebrile with no leukocytosis. Seen by infectious disease, vancomycin discontinued. Zosyn IV discontinued and will discharge patient home on ciprofloxacin for a total of 10 days. Pain management with Tylenol, Tylenol 3. Blood cultures negative after 48 hours. Will follow infectious disease consult. Pertinent Studies: hand x-ray Patient Condition at Discharge: Serious Plan - Discharge Summary Discharge Rx Participant: No New Discharge Prescriptions: New Ciprofloxacin HCl 500 mg PO BID 10 Days #20 tab Continue Acetaminophen Tab [Tylenol] 975 mg PO ONCE PRN PRN Reason: Pain Discontinued Cephalexin [Keflex] 500 mg PO Q6HR 10 Days cap Sulfamethox-Tmp 800-160Mg [Bactrim DS 800-160 mg] 2 tab PO Q12HR #40 tab Discharge Medication List Acetaminophen Tab [Tylenol] 975 mg PO ONCE PRN 04/10/18 [History] Ciprofloxacin HCl 500 mg PO BID 10 Days #20 tab 04/13/18 [Rx] Follow up Appointment(s)/Referral(s): None,Stated [Primary Care Provider] - 1-2 days Heladio Bledsoe MD [STAFF PHYSICIAN] - 1 Week Activity/Diet/Wound Care/Special Instructions: Diet: Regular please follow-up with her primary care provider within 1-2 days of discharge. Please follow-up with infectious disease within 1 week of discharge. Please take all medications as advised. Discharge Disposition: HOME SELF-CARE
--- NOTE | 2018-04-13 18:44 | PN ---
PROGRESS NOTE DATE OF SERVICE: 04/13/2018 REASON FOR FOLLOWUP: Right hand cellulitis. INTERVAL HISTORY: The patient was seen on rounds this morning. The patient has been afebrile. He is feeling better. The right hand swelling and redness has improved. No abdominal pain. No diarrhea. PHYSICAL EXAMINATION: Blood pressure 136/89 with a pulse of 91, temperature 97.6. He is 95% on room air. General description is a middle-aged male up in the chair in no distress. RESPIRATORY SYSTEM: Unlabored breathing. Clear to auscultation anteriorly. HEART: S1, S2. Regular rate and rhythm. ABDOMEN: Soft. No tenderness. Right hand swelling and redness has improved. No drainage. LABS: BUN is 15, creatinine 1.10. Blood culture has been negative. 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 Patient responded to Zosyn. That will be transitioned to oral Cipro for another 10 days with close outpatient followup. Continue supportive care. MMODL / IJN: [id number] /
== END 2018-04-13 15:13 | disposition home or self-care (01) | DRG 603 ==
LOC: EC 18:37 → 4MS4W 21:58
PROVIDERS: ADMIT Family Medicine; ATTEND Family Medicine
DX: L03.113 Cellulitis of right upper limb (principal); Z87.891 Personal history of nicotine dependence; S61.411S Laceration without foreign body of right hand, sequela; W45.0XXS Nail entering through skin, sequela; Z86.14 Personal history of Methicillin resistant Staphylococcus aureus infection
CPT/HCPCS: 36415; 80048; 80053; 83605; 85025; 85027; 87040; 96365; 99285

== ENCOUNTER → 2023-04-14 | Outpatient (CLI) | payer BC ==
--- NOTE | 2023-04-14 11:45 | US ---
EXAMINATION TYPE: US abdomen comp/pelvis limited DATE OF EXAM: 04/14/2023 COMPARISON: NONE CLINICAL INDICATION: Male, 42 years old with history of R10.84 ABDOMINAL PAIN; Pt states ABD pain, mo re on right side that radiates to back EXAM MEASUREMENTS: Liver Length: 16.8 cm Gallbladder Wall: 0.2 cm CBD: 0.4 cm Spleen: 10.5 cm Right Kidney: 12.4 x 6.2 x 5.5 cm Left Kidney: 12.2 x 5.4 x 4.9 cm Pancreas: 2mm panc duct visualized, tail obscured by overlying bowel gas Liver: Heterogeneous Gallbladder: wnl CBD: wnl Spleen: wnl Right Kidney: No evidence of hydro, possible 6mm calculus mid pole Left Kidney: Visualized portions appeared wnl Upper IVC: wnl Abd Aorta: wnl, distal portion gassed out Bladder: wnl Bilateral Jets Seen No IMPRESSION: 1. Hepatocellular disease commonly relating to hepatic steatosis. 2. Nonobstructing right renal calculus.
== END | disposition home or self-care (01) ==
LOC: RADUSWWP 08:57
PROVIDERS: ATTEND Family Medicine
DX: N20.0 Calculus of kidney (principal); K76.9 Liver disease, unspecified
CPT/HCPCS: 76700; 76857

== ENCOUNTER → 2023-05-25 | Outpatient (CLI) | payer BC ==
--- NOTE | 2023-05-30 16:00 | CT ---
EXAMINATION TYPE: CT abdomen pelvis wo con CT DLP: mGycm, Automated exposure control for dose reduction was used. DATE OF EXAM: 05/25/2023 9:57 AM COMPARISON: CT abdomen pelvis most recent from CLINICAL INDICATION:Male, 42 years old with history of R10.84 GENERALIZED ABDOMINAL PAIN; TECHNIQUE: Axial CT abdomen pelvis wo con;Sagittal and coronal reformats were created on a separate workstation. Contrast used: mL of , (none if empty) Oral contrast used: (none if empty) FINDINGS: LOWER CHEST: Unremarkable. Punctate calcified granuloma left lung base posteriorly ABDOMEN LIVER: Unremarkable GALLBLADDER AND BILE DUCTS: Unremarkable. PANCREAS: Unremarkable. SPLEEN: Unremarkable. ADRENAL GLANDS: Unremarkable. KIDNEYS AND URETERS: No evidence of hydronephrosis or renal calculus. The ureters are unremarkable. PELVIS BLADDER: Unremarkable REPRODUCTIVE: Unremarkable. ABDOMEN & PELVIS STOMACH AND BOWEL: Stomach and duodenum are unremarkable. Normal appendix identified. No evidence of bowel obstruction. Presumed mural thickening of the sigmoid colon wall, perhaps indicating a mild fo armand colitis. PERITONEUM/RETROPERITONEUM: No evidence of pneumoperitoneum or free fluid. VASCULATURE: No evidence of aortic aneurysm. MUSCULOSKELETAL: No acute osseous abnormalities LYMPH NODES: No gross evidence for lymphadenopathy. SOFT TISSUE/ABDOMINAL WALL: Unremarkable IMPRESSION: 1. Presumed mural thickening of the sigmoid colon wall, perhaps indicating a mild focal colitis. N o diverticulitis. Normal appendix.
== END | disposition home or self-care (01) ==
LOC: RADCTMAIN 07:34
PROVIDERS: ATTEND Family Medicine
DX: R10.84 Generalized abdominal pain (principal); R10.2 Pelvic and perineal pain
CPT/HCPCS: 74176

== ENCOUNTER 2024-02-16 17:14 | Emergency (ER) | payer BC ==
[2024-02-16 17:47] LABS: Basophils # (A) 0.1 k/uL (0-0.2); Basophils % (A) 1 %; Eosinophils # (A) 0.1 k/uL (0-0.7); Eosinophils % (A) 2 %; HCT 44.8 % (39.0-53.0); HGB 14.6 gm/dL (13.0-17.5); Lymphocytes # (A) 2.3 k/uL (1.0-4.8); Lymphocytes % (A) 26 %; MCH 32.7 pg (25.0-35.0); MCHC 32.5 g/dL (31.0-37.0); MCV 100.5 fL (80.0-100.0); Mean Platelet Volume 7.4; Monocytes # (A) 0.5 k/uL (0-1.0); Monocytes % (A) 5 %; Neutrophils # (A) 5.8 k/uL (1.3-7.7); Neutrophils % (A) 65 %; Platelet Count 205 k/uL (150-450); RBC 4.46 m/uL (4.30-5.90); RDW 11.9 % (11.5-15.5); WBC 8.9 k/uL (3.8-10.6)
[2024-02-16 17:56] LABS: Partial Thromboplastin Time 22.8 sec (22.0-30.0); Prothrombin Time 10.8 sec (10.0-12.5)
[2024-02-16 17:57] LABS: ALT 52 U/L (4-49); AST 62 U/L (17-59); African American GFR (CKD) >90 (>60 ml/min/1.73 sqM); Albumin 4.1 g/dL (3.5-5.0); Alkaline Phosphatase 42 U/L (38-126); Amylase 83 U/L (30-110); Anion Gap 8 mmol/L; Blood Urea Nitrogen 17 mg/dL (9-20); Carbon Dioxide 25 mmol/L (22-30); Chloride 103 mmol/L (98-107); Glucose 118 mg/dL (74-99); Lipase 211 U/L (23-300); Non-African American GFR(CKD) >90 (>60 ml/min/1.73 sqM); Potassium 3.6 mmol/L (3.5-5.1); Sodium 136 mmol/L (137-145)
--- NOTE | 2024-02-16 19:26 | ED ---
Abdominal Pain HPI - General Chief Complaint: Abdominal Pain Stated Complaint: Dizziness Time Seen by Provider: 02/16/24 19:25 Source: patient Mode of arrival: ambulatory Limitations: no limitations - History of Present Illness Initial Comments: Balwinder is a 43-year-old male with a history of alcohol abuse who presents to the ER today for evaluation of abdominal pain nausea and vomiting. Patient states that he used to drink much more heavily and does up to a case a night of beer with 8-10 shots of whiskey and now he drinks maybe a sixpack of beer and 4- 8 shots of whiskey. Patient states that he wakes up at 3 AM to start working when he wakes up he has nausea and vomiting. Patient has persistent vomiting for a number of hours begins to feel better midday and then starts drinking again in the afternoon. Patient also notes daily marijuana use. Patient was seen last year for abdominal pain nausea and vomiting and diagnosed with diverticulitis. He did the course of antibiotics but never followed GI. He has no other GI pathology that he is aware of never had any type of scope. Patient reports that this has been happening daily for nearly a month but seems to be getting worse. - Related Data Home Medications Medication Instructions Recorded Confirmed Acetaminophen Tab [Tylenol] 975 mg PO ONCE PRN 04/10/18 04/10/18 Previous Rx's Medication Instructions Recorded Ciprofloxacin HCl 500 mg PO BID 10 Days #20 tab 04/13/18 Ondansetron Odt [Zofran Odt] 4 mg PO Q8HR PRN #20 tab 02/16/24 Pantoprazole [Protonix] 40 mg PO DAILY 30 Days #30 tab 02/16/24 Allergies Allergy/AdvReac Type Severity Reaction Status Date / Time NSAIDS (Non-Steroidal Allergy Anaphylaxis Verified 04/10/18 22:44 Anti-Inflamma Review of Systems ROS Statement: Those systems with pertinent positive or pertinent negative responses have been documented in the HPI. ROS Other: All systems not noted in ROS Statement are negative. Past Medical History Past Medical History: No Reported History Additional Past Medical History / Comment(s): Pt admitted 12/19/15 with L foot abscess from infected hematoma/L foot cellulitis. He had a recent L foot injury (trailer dropped on foot). History of Any Multi-Drug Resistant Organisms: MRSA Date of last positivie culture/infection: 2013 MDRO Source:: Lip, R. Leg Past Surgical History: Orthopedic Surgery Additional Past Surgical History / Comment(s): 12/21/15 I & D L foot. Past Anesthesia/Blood Transfusion Reactions: No Reported Reaction Past Psychological History: No Psychological Hx Reported Past Alcohol Use History: Daily Past Drug Use History: Marijuana - Past Family History Father Family Medical History: No Reported History Additional Family Medical History / Comment(s): etoh cirrohsis Mother Family Medical History: No Reported History General Exam - General Exam Comments Initial Comments: Physical Exam GENERAL: Patient is well-developed and well-nourished. Patient is nontoxic and well-hydrated and is in no distress. HENT: Normocephalic, Atraumatic. EYES: PERRL, EOMI PULMONARY: Unlabored respirations. CARDIOVASCULAR: RRR Warm and well perfused extremities ABDOMEN: Non-distended SKIN: No rashes or bruising : Deferred NEUROLOGIC: Alert and oriented Normal speech Normal gait MUSCULOSKELETAL: Moving all extremities with no apparent injury PSYCHIATRIC: No SI/HI Limitations: no limitations Course Vital Signs 02/16/24 17:20 Temperature 97.9 F Pulse Rate 84 Respiratory 20 Rate Blood Pressure 131/82 O2 Sat by Pulse 98 Oximetry Medical Decision Making - Medical Decision Making Was pt. sent in by a medical professional or institution (, PA, [employer], urgent care, hospital, or correction...) When possible be specific @ -No Did you speak to anyone other than the patient for history (EMS, parent, family, police, friend...)? What history was obtained from this source @ -Yes at bedside Did you review nursing and triage notes (agree or disagree)? Why? @ -I reviewed and agree with nursing and triage notes Were old charts reviewed (outside hosp., previous admission, EMS record, old EKG, old radiological studies, urgent care reports/EKG's, correction records)? Report findings @ -Yes previous visits were reviewed Differential Diagnosis (chest pain, altered mental status, abdominal pain women, abdominal pain men, vaginal bleeding, weakness, fever, dyspnea, syncope, hea dache, dizziness, GI bleed, back pain, seizure, CVA, palpatations, mental health)? @ -Differential Abdominal Pain Men: Appendicitis, cholecystitis, diverticulosis, ischemic bowel, pancreatitis, hepa titis, UTI, gastroenteritis, AAA, incarcerated hernia, bowel obstruction, constipation, inflammatory bowel, hepatitis, peptic ulcer disease, splenic infarction, perforated viscus, testicular torsion, this is not meant to be an all-inclusive list EKG interpreted by me (3pts min.). @ -As above X-rays interpreted by me (1pt min.). @ -None done CT interpreted by me (1pt min.). @ -No free air, no masses no inflammatory changes U/S interpreted by me (1pt. min.). @ -None done What testing was considered but not performed or refused? (CT, X-rays, U/S, labs)? Why? @ -None What meds were considered but not given or refused? Why? @ -None Did you discuss the management of the patient with other professionals (professionals i.e. , PA, [employer], lab, RT, psych nurse, social media content manager, fuel manager, teacher, commanding officer motorized squad, case sealer)? Give summary @ -No Was smoking cessation discussed for >3mins.? @ -No Was critical care preformed (if so, how long)? @ -No Were there social determinants of health that impacted care today? How? (Homelessness, low income, unemployed, alcoholism, drug addiction, palmer sportation, low edu. Level, literacy, decrease access to med. care, [facility], rehab)? @ -Alcoholism Was there de-escalation of care discussed even if they declined (Discuss DNR or withdrawal of care, Hospice)? DNR status @ -No What co-morbidities impacted this encounter? (DM, HTN, Smoking, COPD, CAD, Cancer, CVA, ARF, Chemo, Hep., AIDS, mental health diagnosis, sleep apnea, morbid obesity)? @ -None Was patient admitted / discharged? Hospital course, mention meds given and route, prescriptions, significant lab abnormalities, going to OR and other pertinent info. @ -Discharged Patient was seen and evaluated history is obtained from the patient labs were obtained and are significant only for elevated liver enzymes consistent with his history of alcohol use. CT imaging was obtained there is no acute findings. Discussed with patient that his daily morning nausea and vomiting could be relat ed to habitual marijuana use or excessive alcohol intake I recommend decreasing both and following with primary care for possible referral to GI. In the meantime we will prescribe Protonix and Zofran for symptomatic management. Undiagnosed new problem with uncertain prognosis? @ -No Drug Therapy requiring intensive monitoring for toxicity (Heparin, Nitro, Insulin, Cardizem)? @ -No Were any procedures done? @ -No Diagnosis/symptom? @ -Nausea and vomiting Acute, or Chronic, or Acute on Chronic? @ -Chronic Uncomplicated (without systemic symptoms) or Complicated (systemic symptoms)? @ -Default Side effects of treatment? @ -No Exacerbation, Progression, or Severe Exacerbation? @ -No Poses a threat to life or bodily function? How? (Chest pain, [place], [place], pneumonia, PE, COPD, DKA, ARF, appy, cholecystitis, CVA, Diverticulitis, Homicidal, Suicidal, threat to staff... and all critical care pts) @ -No - Lab Data Result diagrams: 02/16/24 17:25 02/16/24 17:25 Lab Results 02/16/24 02/16/24 02/16/24 Range/Units 17:25 17:25 17:25 WBC 8.9 (3.8-10.6) k/uL RBC 4.46 (4.30-5.90) m/uL Hgb 14.6 (13.0-17.5) gm/dL Hct 44.8 (39.0-53.0) % MCV 100.5 H (80.0-100.0) fL MCH 32.7 (25.0-35.0) pg MCHC 32.5 (31.0-37.0) g/dL RDW 11.9 (11.5-15.5) % Plt Count 205 (150-450) k/uL MPV 7.4 Neutrophils % 65 % Lymphocytes % 26 % Monocytes % 5 % Eosinophils % 2 % Basophils % 1 % Neutrophils # 5.8 (1.3-7.7) k/uL Lymphocytes # 2.3 (1.0-4.8) k/uL Monocytes # 0.5 (0-1.0) k/uL Eosinophils # 0.1 (0-0.7) k/uL Basophils # 0.1 (0-0.2) k/uL PT 10.8 (10.0-12.5) sec INR 1.0 (<1.2) APTT 22.8 (22.0-30.0) sec Sodium 136 L (137-145) mmol/L Potassium 3.6 (3.5-5.1) mmol/L Chloride 103 (98-107) mmol/L Carbon Dioxide 25 (22-30) mmol/L Anion Gap 8 mmol/L BUN 17 (9-20) mg/dL Creatinine 0.94 (0.66-1.25) mg/dL Est GFR (CKD-EPI)AfAm >90 (>60 ml/min/1.73 sqM) Est GFR (CKD-EPI)NonAf >90 (>60 ml/min/1.73 sqM) Glucose 118 H (74-99) mg/dL Calcium 9.0 (8.4-10.2) mg/dL Total Bilirubin 1.0 (0.2-1.3) mg/dL AST 62 H (17-59) U/L ALT 52 H (4-49) U/L Alkaline Phosphatase 42 (38-126) U/L Troponin I (0.000-0.034) ng/mL Total Protein 7.0 (6.3-8.2) g/dL Albumin 4.1 (3.5-5.0) g/dL Amylase 83 (30-110) U/L Lipase 211 (23-300) U/L Urine Color Urine Appearance (Clear) Urine pH (5.0-8.0) Ur Specific [place] (1.001-1.035) Urine Protein (Negative) Urine Glucose (UA) (Negative) Urine Ketones (Negative) Urine Blood (Negative) Urine Nitrite (Negative) Urine Bilirubin (Negative) Urine Urobilinogen (<2.0) mg/dL Ur Leukocyte Esterase (Negative) 02/16/24 02/16/24 Range/Units 17:25 21:47 WBC (3.8-10.6) k/uL RBC (4.30-5.90) m/uL Hgb (13.0-17.5) gm/dL Hct (39.0-53.0) % MCV (80.0-100.0) fL MCH (25.0-35.0) pg MCHC (31.0-37.0) g/dL RDW (11.5-15.5) % Plt Count (150-450) k/uL MPV Neutrophils % % Lymphocytes % % Monocytes % % Eosinophils % % Basophils % % Neutrophils # (1.3-7.7) k/uL Lymphocytes # (1.0-4.8) k/uL Monocytes # (0-1.0) k/uL Eosinophils # (0-0.7) k/uL Basophils # (0-0.2) k/uL PT (10.0-12.5) sec INR (<1.2) APTT (22.0-30.0) sec Sodium (137-145) mmol/L Potassium (3.5-5.1) mmol/L Chloride (98-107) mmol/L Carbon Dioxide (22-30) mmol/L Anion Gap mmol/L BUN (9-20) mg/dL Creatinine (0.66-1.25) mg/dL Est GFR (CKD-EPI)AfAm (>60 ml/min/1.73 sqM) Est GFR (CKD-EPI)NonAf (>60 ml/min/1.73 sqM) Glucose (74-99) mg/dL Calcium (8.4-10.2) mg/dL Total Bilirubin (0.2-1.3) mg/dL AST (17-59) U/L ALT (4-49) U/L Alkaline Phosphatase (38-126) U/L Troponin I <0.012 (0.000-0.034) ng/mL Total Protein (6.3-8.2) g/dL Albumin (3.5-5.0) g/dL Amylase (30-110) U/L Lipase (23-300) U/L Urine Color Colorless Urine Appearance Clear (Clear) Urine pH 7.0 (5.0-8.0) Ur Specific [place] >1.050 H (1.001-1.035) Urine Protein Negative (Negative) Urine Glucose (UA) Negative (Negative) Urine Ketones Negative (Negative) Urine Blood Negative (Negative) Urine Nitrite Negative (Negative) Urine Bilirubin Negative (Negative) Urine Urobilinogen 2.0 (<2.0) mg/dL Ur Leukocyte Esterase Negative (Negative) - EKG Data EKG Comments: EKG obtained due to possible syncope EKG obtained at 1739 rate is 79 rhythm is s inus normal axis, normal intervals, OK 148 QRS 101 QTc 410 there are no acute ST elevations or depressions there is no evidence of acute ischemia or infarction or pathologic arrhythmia. Disposition Clinical Impression: Abdominal pain, Nausea and vomiting Disposition: HOME SELF-CARE Condition: Stable Additional Instructions: Recommend discontinuing use of marijuana, decrease alcohol use and follow with your regular doctor for possible referral to GI. Prescriptions: Pantoprazole [Protonix] 40 mg PO DAILY 30 Days #30 tab Ondansetron Odt [Zofran Odt] 4 mg PO Q8HR PRN #20 tab PRN Reason: Nausea Is patient prescribed a controlled substance at d/c from ED?: No Referrals: Dhaval Zimmerman DO [Primary Care Provider] - 1-2 days
--- NOTE | 2024-02-16 21:13 | CT ---
INDICATION: Patient age:Male; 43 years old; Reason for study: abdomen pain with vomiting bile iumblical pain; PHH. COMPARISON: CT abdomen/pelvis 05/25/2023. TECHNIQUE: Standard CT of the abdomen and pelvis following the administration of 100 cc of Isovue 3 00 IV contrast material. Coronal and sagittal reformats were performed. One or more CT dose reduction strategies were utilized during this examination. Total DLP administered was 1386.6 mGycm. FINDINGS: LOWER CHEST: Scattered punctate calcified granulomas noted ABDOMEN LIVER: Unremarkable. GALLBLADDER AND BILE DUCTS: The gallbladder is contracted. No biliary ductal dilatation. PANCREAS: Unremarkable. SPLEEN: Unremarkable. ADRENAL GLANDS: Unremarkable. KIDNEYS AND URETERS: No evidence of hydronephrosis or renal calculus. The ureters are unremarkable. PELVIS URINARY BLADDER: Incompletely distended but grossly unremarkable. REPRODUCTIVE: Coarse calcifications of the prostate gland are identified. ABDOMEN & PELVIS STOMACH AND BOWEL: Stomach is grossly unremarkable. Small bowel is of normal caliber. No evidence of bowel obstruction. PERITONEUM: No evidence of pneumoperitoneum or free fluid. VASCULATURE: No aneurysmal changes. MUSCULOSKELETAL: No acute osseous abnormalities. LYMPH NODES: Unremarkable. SOFT TISSUE/ABDOMINAL WALL: Unremarkable IMPRESSION: No acute intra-abdominal/pelvic process. [facility], , 02/16/2024 9:11 PM
[2024-02-16 22:23] LABS: Appearance,Urine Clear (Clear); Bilirubin,Urine Negative (Negative); Blood,Urine Negative (Negative); Color,Urine Colorless; Glucose,Urine (UA) Negative (Negative); Ketones,Urine Negative (Negative); Leukocyte Esterase,Urine Negative (Negative); Nitrite,Urine Negative (Negative); Protein,Urine Negative (Negative)
[2024-02-16 22:24] LABS: Specific Gravity,Urine >1.050 (1.001-1.035)
[2024-02-17 02:15] VITALS: BP 126/78; PULSE 80; RESP 16; TEMP 98.1
== END 2024-02-16 22:50 | disposition home or self-care (01) ==
LOC: EC 17:14
DX: R10.9 Unspecified abdominal pain (principal); R11.2 Nausea with vomiting, unspecified; Z88.6 Allergy status to analgesic agent
CPT/HCPCS: 36415; 93005; 80053; 82150; 83690; 84484; 85025; 85610; 85730; 81003; 74177; 99285; Q9967